=== PATIENT | female | born 1950 | race Caucasian/White ===

== ENCOUNTER 2019-11-27 12:54 | Inpatient (IN) ==
[2019-11-27] MEDS ORDERED: ASPIRIN PO ONE (13:06)
--- NOTE | 2019-11-27 13:26 | Diag Imaging Result Doc PS360 ---
EXAM: CHEST-2 VIEWS 11/27/2019 HISTORY: sob TECHNIQUE: PA and lateral chest COMMENT: There is no evidence of acute cardiac or pulmonary disease. Compared to 02/19/2016 there has been no significant change in the appearance the chest. IMPRESSION: No evidence of acute disease. Electronically signed by Endy Peña 11/27/2019 1:24 PM
[2019-11-27 13:28] LABS: BASO# 0.03 X1000 (0.0-0.2); BASO% 0.3 % (0.0-0.8); EOS% 1.7 % (0.0-10.0); HEMATOCRIT 44.5 % (37.0-47.0); HEMOGLOBIN 13.4 g/dL (12.0-16.0); IMM GRAN# 0.09 X1000 (0.0-0.04); IMM GRAN% 0.8 % (0.0-0.5); LYMPH# 1.97 X1000 (1.2-3.4); LYMPH% 16.4 % (20.5-51.1); MCH 21.5 PG (27-31); MCHC 30.1 g/dL (33-37); MCV 71.4 FL (81-99); MONO# 1.21 X1000 (0.11-0.59); MONO% 10.1 % (1.7-9.3); MPV 9.9 FL (7.4-10.4); NEUT% 70.7 % (42.2-75.2); PLT 454 X1000 (130-400); RBC 6.23 XMIL (4.2-5.4)
[2019-11-27 13:31] LABS: INR 0.95; PROTIME 12.8 Seconds (11.0-16.0)
[2019-11-27 13:32] LABS: PTT 26.9 Seconds (22.3-41.8)
--- NOTE | 2019-11-27 13:44 | EKG Report ---
Test Performed on : 11/27/2019 1:42:24 PM Test Reason : sob Blood Pressure : / mmHG Vent. Rate : 099 BPM Atrial Rate : 099 BPM P-R Int : 140 ms QRS Dur : 080 ms QT Int : 350 ms P-R-T Axes : 052 -21 073 degrees QTc Int : 449 ms Normal sinus rhythm. Cannot rule out Anterior infarct , age undetermined Abnormal ECG No previous ECGs available Unconfirmed Result
[2019-11-27 13:46] LABS: AGAP 16; ALB/GLOB RATIO 1.4; ALBUMIN 4.4 g/dL (3.5-5.0); ALKALINE PHOSPHATASE 132 U/L (32-104); BUN 16 mg/dL (8-22); CALCIUM 9.4 mg/dL (8.8-10.2); CHLORIDE 94 mmol/L (98-107); COSMO 272; CREATININE 0.7 mg/dL (0.5-0.9); ESTIMATED GFR > 60; GLUCOSE 113 mg/dL (70-104); GOT 25 U/L (10-30); GPT 28 U/L (10-36); POTASSIUM 3.8 mmol/L (3.5-5.1); SODIUM 135 mmol/L (136-145); TCO2 25 mmol/L (25-35); TOTAL PROTEIN 7.5 g/dL (6.3-8.3)
[2019-11-27 13:49] LABS: CK PROFILE 180 U/L (24-173)
[2019-11-27 14:07] LABS: CK INDEX 3.3 (0.0-2.5); CK-MB 5.89 ng/mL (0.0-5.0)
--- NOTE | 2019-11-27 14:17 | PROVIDER DOCUMENTATION ---
HPI-Chest Pain - General Chief Complaint: Shortness of Breath Stated Complaint: DR SENT FOR FLUID ON LUNGS Time Seen by Provider: 11/27/19 14:16 Source: patient Allergies/Adverse Reactions: Patient Allergies Allergy/AdvReac Type Severity Reaction Status Date / Time hydrocodone Allergy Unknown Verified 08/22/17 13:29 amoxicillin trihydrate * Allergy RASH Verified 02/19/16 09:01 [From Augmentin] potassium clavulanate * Allergy RASH Verified 02/19/16 09:01 [From Augmentin] ropinirole HCl * Allergy RASH Verified 02/19/16 08:47 [From Requip] Sulfa (Sulfonamide Allergy ANAPHYLAXIS Verified 02/19/16 08:47 Antibiotics) shellfish derived AdvReac HEADACHE Verified 02/19/16 09:01 tramadol AdvReac Unknown Verified 02/19/16 09:01 Home Medications: Home Medication List Medication Instructions Recorded Confirmed Last Taken Type RX: Atorvastatin Calcium [Lipitor] 40 mg PO DAILY 02/19/16 11/27/19 Unknown History RX: Duloxetine [Cymbalta] 60 mg PO DAILY 02/19/16 11/27/19 Unknown History RX: Gabapentin [Neurontin] 900 mg PO BID 02/19/16 11/27/19 Unknown History RX: Magnesium Citrate 100 mg PO BID 02/19/16 11/27/19 Unknown History RX: Metformin E.r. [Glucophage Xr] 2 tab PO BID 02/19/16 11/27/19 Unknown Histor y RX: Omeprazole 20 mg PO BID 02/19/16 11/27/19 Unknown History RX: Pramipexole [Mirapex] 1 mg PO DAILY 02/19/16 11/27/19 Unknown History RX: Spironolactone 100 mg PO QAM 02/19/16 11/27/19 Unknown History RX: LISINOpril [Prinivil] 1 tab PO QAM 03/09/18 11/27/19 Unknown History RX: Mirtazapine 1 tab PO HS 03/09/18 11/27/19 Unknown History Fluticasone/Vilant 200/25 INH 1 inhaler INH QAM 11/27/19 11/27/19 Unknown History [Breo Ellipta 200/25 Mcg INH] Glimepiride 4 mg PO QAM 11/27/19 11/27/19 Unknown History Insulin Degludec [Tresiba 120 units SQ QPM 11/27/19 11/27/19 Unknown History Flextouch U-200] RX: Albuterol 0.5% INH Conc 2 puff INH Q4HR PRN 11/27/19 11/27/19 Unknown History [Albuterol 0.5% INH Conc For Hyperkalemia] RX: Insulin Aspart [Novolog 50 units SQ TID 11/27/19 11/27/19 Unknown History Flexpen] Semaglutide [Ozempic] 180 ml PO QAM 11/27/19 11/27/19 Unknown History - History of Present Illness-CP Nature of Presenting Problem: Patient is a 69 yo F with PMH of DM2, HTN, Depression, COPD, who presents to the ED after she was sent form her PCP's office where she was seen for sob and t here was concern for fluid overload. Patient reports worsening SOB and chest pain (described as "pressure") on exertion over the past 2 weeks. The sob and cp are both partially relieved with rest. Patient additionally has swelling of the LE's and reports a wet cough for almost 2 months. She denies palpitations, syncope, dizziness, n/v/d. Location: reports: substernal Chest Pain Radiation: reports: back Quality of Pain: reports: pressure Severity in ED: moderate Onset/Duration: gradual Timing: still present Context/Activities at Onset: reports: light activity Modifying Factors: improves with: rest. worse with: exercise Associated Symptoms: reports: back pain, diaphoresis, edema, fatigue. denies: abdominal pain, dizziness, fever/chills, nausea, syncope, vomiting, weakness Aspirin Treatment Today: provided by ED Prior Chest Pain/Cardiac Workup: reports: no prior chest pain, no prior cardiac workup Similar Symptoms Previously?: No Review of Systems - Adult - REVIEW OF SYSTEMS - ADULT Constitutional: reports: no symptoms reported Eyes: reports: no symptoms reported Ears, Nose, Mouth & Throat: reports: no symptoms reported Cardiovascular: reports: see HPI Respiratory: reports: see HPI Gastrointestinal: reports: no symptoms reported Genitourinary: reports: no symptoms reported Musculoskeletal: reports: no symptoms reported Integumentary: reports: no symptoms reported Neurological: reports: no symptoms reported Psychiatric: reports: no symptoms reported Endocrine: reports: no symptoms reported Hematologic/Lymphatic: reports: no symptoms reported Allergic/Immunologic: reports: no symptoms reported All Other Systems: Reviewed and Negative Past History - Adult - PAST MEDICAL HISTORY-ADULT Review of Records: reports: Old Records Reviewed, Nursing Assessment Review, Medications Reviewed, Social history reviewed & non-contributory. Cardiovascular: reports: HTN Respiratory: reports: COPD Musculoskeletal: reports: chronic pain (chronic back pain) Endocrine/Immune: reports: Diabetes Diabetes Type: Type 2 Other Conditions: reports: denies history - PRIOR SURGERIES/PROCEDURES Surgical/Procedure History: reports: appendectomy, cholecystectomy, orthopedic (extremity) - IMMUNIZATION STATUS Childhood Immunizations: See Nurse Assessment Flu Vaccine: See Nurse Assessment - FAMILY HISTORY Family History: reviewed, not pertinent - SOCIAL HISTORY Smoking: denies, secondhand Substance Use: none/never Alcohol Use Frequency: never Living Situation: family Physical Exam-General - PHYSICAL EXAM-ADULT Initial Vital Signs Reviewed: Yes (Mild Tachycardia noted, 99 bpm on EKG) - CONSTITUTIONAL General Appearance: appears well, alert, no apparent distress - EYES Eyes: PERRL/EOMI - HEAD, EARS, NOSE, MOUTH & THROAT HENMT: normocephalic/atraumatic, moist mucous membranes - NECK Neck: non-tender, full range of motion - RESPIRATORY Respiratory: chest non-tender, lungs clear, normal breath sounds - CARDIOVASCULAR Cardiovascular: normal peripheral pulses, regular rate, rhythm, no JVD, no murmur, other (1+ bilateral LE edema below knee level) - GASTROINTESTINAL (ABDOMEN) Abdominal Exam: normal bowel sounds, non tender, soft, other (Obese) - MUSCULOSKELETAL Back Exam: normal inspection Extremity: non-tender - SKIN Integumentary: normal color - NEUROLOGIC Neurologic: recreational therapy technician II-XII nml as tested - PSYCHIATRIC Psych/Mental Status: oriented x 3 - HEART Score HEART Score: History: Highly Suspicious HEART Score: ECG: Non-Specific Repolarization Disturbance/LBBB/PM HEART Score: Age: > or = 65 Years HEART Score: Risk Factors for Atherosclerotic Disease: > or = 3 Risk Factors or History of Atherosclerotic Disease HEART Score: Troponin: 1-3x Normal Limit (High risk) Total HEART Score:: 8 Progress - PLAN OF CARE/RESULTS Progress/Plan/Lab Results: Vital Signs - 8 hr 11/27/19 17:09 11/27/19 17:10 11/27/19 17:15 Pulse Rate Respiratory Rate Blood Pressure 120/54 O2 Sat by Pulse Oximetry 100 99 99 11/27/19 17:30 11/27/19 17:45 11/27/19 18:00 Pulse Rate Respiratory Rate Blood Pressure O2 Sat by Pulse Oximetry 99 100 100 11/27/19 18:15 11/27/19 18:17 11/27/19 18:30 Pulse Rate 102 H 100 H Respiratory Rate 25 H 28 H Blood Pressure 134/82 O2 Sat by Pulse Oximetry 100 92 L 92 L 11/27/19 18:49 11/27/19 18:50 11/27/19 19:00 Pulse Rate 108 H 106 H 104 H Respiratory Rate 28 H 22 Blood Pressure 156/80 150/73 O2 Sat by Pulse Oximetry 97 95 93 L 11/27/19 19:34 11/27/19 19:45 11/27/19 20:00 Pulse Rate 102 H 101 H Respiratory Rate 22 28 H Blood Pressure 142/68 O2 Sat by Pulse Oximetry 94 L 95 95 Laboratory Results - last 24 hr 11/27/19 11/27/19 11/27/19 13:09 13:09 13:09 WBC 12.00 H RBC 6.23 H Hgb 13.4 Hct 44.5 MCV 71.4 L MCH 21.5 L MCHC 30.1 L RDW Std Deviation 18.0 H Plt Count 454 H MPV 9.9 Immature Gran % (Auto) 0.8 H Neut % (Auto) 70.7 Lymph % (Auto) 16.4 L [place] % (Auto) 10.1 H Eos % (Auto) 1.7 Baso % (Auto) 0.3 Immature Gran # (Auto) 0.09 H Neut # (Auto) 8.50 H Lymph # (Auto) 1.97 [place] # (Auto) 1.21 H Eos # (Auto) 0.20 Baso # (Auto) 0.03 PT INR PTT (Actin FS) D-Dimer, Quantitative Sodium 135 L Potassium 3.8 Chloride 94 L Carbon Dioxide 25 Anion Gap 16 BUN 16 Creatinine 0.7 Estimated GFR/1.73 m2 > 60 BUN/Creatinine Ratio 23 Glucose 113 H Calculated Osmolality 272 Calcium 9.4 Total Bilirubin 0.30 AST 25 ALT 28 Alkaline Phosphatase 132 H Creatine Kinase 180 H Creatine Kinase Index 3.3 H CK-MB (CK-2) 5.89 H Troponin T High Sens [id number]-[id number] Pept 23 Total Protein 7.5 Albumin 4.4 Globulin 3.1 Albumin/Globulin Ratio 1.4 11/27/19 11/27/19 11/27/19 13:09 13:09 13:09 WBC RBC Hgb Hct MCV MCH MCHC RDW Std Deviation Plt Count MPV Immature Gran % (Auto) Neut % (Auto) Lymph % (Auto) [place] % (Auto) Eos % (Auto) Baso % (Auto) Immature Gran # (Auto) Neut # (Auto) Lymph # (Auto) [place] # (Auto) Eos # (Auto) Baso # (Auto) PT 12.8 INR 0.95 PTT (Actin FS) 26.9 D-Dimer, Quantitative < 0.27 Sodium Potassium Chloride Carbon Dioxide Anion Gap BUN Creatinine Estimated GFR/1.73 m2 BUN/Creatinine Ratio Glucose Calculated Osmolality Calcium Total Bilirubin AST ALT Alkaline Phosphatase Creatine Kinase Creatine Kinase Index CK-MB (CK-2) Troponin T High Sens 23 H* Ezs-W-Sdvvdwdoque Pept Total Protein Albumin Globulin Albumin/Globulin Ratio 11/27/19 11/27/19 17:02 17:02 WBC RBC Hgb Hct MCV MCH MCHC RDW Std Deviation Plt Count MPV Immature Gran % (Auto) Neut % (Auto) Lymph % (Auto) [place] % (Auto) Eos % (Auto) Baso % (Auto) Immature Gran # (Auto) Neut # (Auto) Lymph # (Auto) [place] # (Auto) Eos # (Auto) Baso # (Auto) PT INR PTT (Actin FS) D-Dimer, Quantitative Sodium Potassium Chloride Carbon Dioxide Anion Gap BUN Creatinine Estimated GFR/1.73 m2 BUN/Creatinine Ratio Glucose Calculated Osmolality Calcium Total Bilirubin AST ALT Alkaline Phosphatase Creatine Kinase 219 H Creatine Kinase Index 2.6 H CK-MB (CK-2) 5.64 H Troponin T High Sens 19 H Nco-B-Kodvkweffvx Pept Total Protein Albumin Globulin Albumin/Globulin Ratio Orders Category Date Time Status Admit - [facility] Routine AdmDCTranf 11/27/19 19:04 Active Activity - Bed Rest with BRP ORDERED Care 11/27/19 19:13 Active Cardiac Monitoring DIRECTED Care 11/27/19 13:06 Active Nursing- MD Consult Request ROUTINE Care 11/27/19 19:37 Active Oxygen Therapy- ED Nursing DIRECTED Care 11/27/19 13:06 Active Resuscitation Status Routine Care 11/27/19 19:12 Ordered Saline Loc DIRECTED Care 11/27/19 19:13 Active Saline Loc NOW Care 11/27/19 13:06 Active Saline Loc NOW Care 11/27/19 18:07 Active Vital Signs Order ORDERED Care 11/27/19 19:13 Active Z-Document. for Tele Applied ORDERED Care 11/27/19 19:14 Active Physician/Provider Consults Routine Cons 11/27/19 19:37 Ordered Diabetic Diet Diet 11/27/19 19:15 Completed Diabetic Diet Diet 11/27/19 19:38 Completed NPO Diet 11/28/19 00:01 Active CHEST-2 VIEWS [RAD] Stat Exams 11/27/19 13:06 Completed Earnestine [MYOCARDIAL PERF SCAN, STR/REST] [NM] Routine Exams 11/28/19 06:00 Ordered BMP [BASIC METABOLIC PANEL] [CHEM] Routine Lab 11/28/19 06:00 Uncollected CBC WITH DIFF [HEME] Routine Lab 11/28/19 06:00 Ordered CBC WITH ELECTRONIC DIFF [HEME] Stat Lab 11/27/19 13:09 Completed CK PROFILE [SP CHEM] Stat Lab 11/27/19 13:09 Completed COMPREHENSIVE METABOLIC PANEL [CHEM] Stat Lab 11/27/19 13:09 Completed Cardiac Profile [CK PROFILE] [SP CHEM] Stat Lab 11/27/19 17:02 Completed D-DIMER [COAG] Stat Lab 11/27/19 13:09 Completed PRO B-NATRIURETIC PEPTIDE Stat Lab 11/27/19 13:09 Completed PROTIME WITH INR [COAG] Stat Lab 11/27/19 13:09 Completed PTT [COAG] Stat Lab 11/27/19 13:09 Completed TROPONIN T HIGH SENSITIVITY Stat Lab 11/27/19 13:09 Completed TROPONIN T HIGH SENSITIVITY Stat Lab 11/27/19 17:02 Completed 0.9% Sodium Chloride Inj [Ns] 1,000 ml Med 11/27/19 19:13 Active IV 60 mls/hr ATORVAstatin [Lipitor] Med 11/27/19 21:00 Active 40 mg PO QHS Alprazolam [Xanax] Med 11/27/19 19:37 Active 0.25 mg PO DAILY PRN PRN Aspirin Med 11/27/19 13:06 Discontinued 325 mg PO NOW ONE Budesonide [Pulmicort Flexhaler] Med 11/27/19 19:37 Pending 1 puff IH PRN PRN Clopidogrel [Plavix] Med 11/27/19 14:27 Discontinued 300 mg PO NOW ONE Dextrose 5%-0.9% NaCl Inj [D5 Ns] 1,000 ml Med 11/27/19 18:08 Active IV 75 mls/hr Duloxetine [Cymbalta] Med 11/28/19 09:00 Active 60 mg PO DAILY Enoxaparin 1 mg/kg [Lovenox 1 mg/kg] Med 11/27/19 14:34 Discontinued 1 each SUBQ NOW ONE Enoxaparin [Lovenox] Med 11/27/19 16:00 Discontinued 110 mg SUBQ NOW ONE Furosemide [Lasix] Med 11/27/19 14:59 Discontinued 40 mg IV NOW ONE Gabapentin [Neurontin] Med 11/27/19 21:00 Active 900 mg PO BID Heparin 25,000 Units/D5w Med 11/27/19 14:30 Discontinued 25,000 unit in 250 ml IV 12 unit/kg/hr Insulin Degludec [Tresiba Flextouch U-200] Med 11/27/19 21:00 Discontinued 30 unit SUBQ HS Insulin Lispro [Humalog] Med 11/27/19 21:00 Active See Dose Instructions SUBQ 0700,1100,1600,2100 LISINOpril [Prinivil] Med 11/28/19 09:00 Active 5 mg PO QAM Metformin E.r. [Glucophage Xr] Med 11/27/19 21:00 Active 1,000 mg PO BID Mirtazapine [Remeron] Med 11/27/19 21:00 Active 15 mg PO HS Morphine Med 11/27/19 19:13 Active 2 mg IV Q2H PRN PRN Omeprazole [Prilosec] Med 11/27/19 21:00 Active 20 mg PO BID Ondansetron [Zofran] Med 11/27/19 19:13 Active 4 mg IV Q4H PRN PRN Patient's Own Med Med 11/27/19 21:00 Active 1 each PO BID Pramipexole [Mirapex] Med 11/27/19 21:00 Active 1 mg PO QHS Spironolactone [Aldactone] Med 11/28/19 09:00 Active 100 mg PO QAM CP/SOB/Palp >45 yrs of Age Stat Oth 11/27/19 13:06 Ordered Oxygen Device Routine Oth 11/27/19 19:13 Active Telemetry [OM.EQ] Routine Oth 11/27/19 19:13 Active EKG [EKG] Routine Ther 11/27/19 16:00 Draft EKG [EKG] Routine Ther 11/28/19 06:00 Ordered EKG [EKG] Stat Ther 11/27/19 13:06 Draft Echo Spec/Color Doppler Routine Ther 11/27/19 19:37 Ordered Transfer/Admit Order [TRANSFER] Routine Transfer 11/27/19 18:36 Completed Discussed case with Director Of Emergency Nursing, as patient was hypoxic in PCP's office this AM, advised to obtain D-Dimer and trend EKG/cardiac enzymes in the ED q3h. D-dimer neg, repeat EKG unchanged, Troponin trending down. Discussed with PCP, will proceed with admission for NSTEMI and further cardiac work-up. Result Diagrams: 11/27/19 13:09 11/27/19 13:09 - REASSESSMENT Reassessment #1 Status: unchanged Reassessment #2 Status: unchanged - EKG 1 Time of EKG reading by physician:: 13:42 EKG Read and Signed by:: Isabel Aguirre EKG Interpretation (*Must complete 3 of following elements*): Abnormal Rate: 99 Rhythm: sinus [place]: normal QRS: normal MD Interval: normal ST Wave: non-specific ST changes Prior EKG Comparison: no prior EKG 2 Time of EKG reading by physician:: 17:25 EKG Read and Signed by:: Isabel Aguirre EKG Interpretation (*Must complete 3 of following elements*): Abnormal Rate: 94 Rhythm: NSR QRS: normal MD Interval: normal Prior EKG Comparison: unchanged from prior - XRAY 1 XRAY Study: Chest Impression: See EMR Report (EXAM: CHEST-2 VIEWS 11/27/2019 HISTORY: sob TECHNIQUE: PA and lateral chest COMMENT: There is no evidence of acute cardiac or pulmonary disease. Compared to 02/19/2016 there has been no significant change in the appearance the chest. IMPRESSION: No evidence of acute disease. Electronically signed by Endy Peña 11/27/2019 1:24 PM) - CONSULTS/PCP/HOSPITALIST Notification #1 *Consult/PCP/Hospitalist*: Dr. Rojo Time Discussed: 15:15 Reason/Comments: NSTEMI Consult Disposition: other (Requested cardiology consult) Time Discussed: 15:26 (Cardiology (Dr. Anderson)) Reason/Comments: Advised to obtain D-Dimer and trend troponin/EKG in the ED #3 Consult: Dr. Rojo Time Discussed: 18:40 Reason/Comments: Admit to inpatient Consult Disposition: Will see in ED Departure - Departure Date of Disposition Decision: 11/27/19 Time of Disposition Decision: 18:43 DIAGNOSIS: NSTEMI (non-ST elevated myocardial infarction) Disposition: ADMITTED INPATIENT 09 Certified Medical Emergency: Emergent Condition: Fair - Critical Care Note This patient required my direct & personal management of CC.: Yes Total Time (mins): 60 Critical Care Statement: This patient required my direct personal management to treat or rule out processes, the absence of which, could potentiallly result in sudden, clinically significant life or limb threatening deterioration. Attestation - Physician/ TED Attestation Patient care was provided by Advanced Practice Provider:: No The physician spent face to face time with patient:: Yes Advanced Practice Provider documentation review:: Supervising physician onsite and consulted in the evaluation and care of this patient. The physician did have a face to face encounter with the patient.
[2019-11-27] MEDS ORDERED: PLAVIX PO ONE (14:27)
[2019-11-27] MEDS ORDERED: HEPARIN 25,000 UNITS/D5W 25,000 UNIT/250 ML IV.SOLN IV SCH (14:30)
[2019-11-27] MEDS ORDERED: LOVENOX 1 MG/KG SUBQ ONE (14:34)
[2019-11-27] MEDS ORDERED: LASIX IV ONE (14:59)
[2019-11-27] MEDS ORDERED: LOVENOX SUBQ ONE (16:00)
--- NOTE | 2019-11-27 17:53 | EKG Report ---
Test Performed on : 11/27/2019 5:23:59 PM Test Reason : Chest pain Blood Pressure : / mmHG Vent. Rate : 094 BPM Atrial Rate : 094 BPM P-R Int : 144 ms QRS Dur : 078 ms QT Int : 348 ms P-R-T Axes : 043 -18 065 degrees QTc Int : 435 ms Normal sinus rhythm. Cannot rule out Anterior infarct (cited on or before 27-NOV-2019) Abnormal ECG When compared with ECG of 27-NOV-2019 13:42, (Unconfirmed) No significant change was found Unconfirmed Result
[2019-11-27] MEDS ORDERED: D5 NS 1,000 ML IV ONE (18:08)
[2019-11-27 18:26] LABS: CK INDEX 2.6 (0.0-2.5); CK-MB 5.64 ng/mL (0.0-5.0)
[2019-11-27] MEDS ORDERED: NS 1,000 ML IV ONE (19:13)
[2019-11-27] MEDS ORDERED: ZOFRAN IV PRN (19:13)
[2019-11-27] MEDS ORDERED: MORPHINE IV PRN (19:13)
[2019-11-27] MEDS ORDERED: BUDESONIDE IH PRN (19:37)
[2019-11-27] MEDS ORDERED: XANAX PO PRN (19:37)
[2019-11-27] MEDS: GLUCOPHAGE XR PO SCH (20:57)
[2019-11-27] MEDS: LIPITOR PO SCH (20:58)
[2019-11-27] MEDS: MIRAPEX PO SCH (20:59)
[2019-11-27] MEDS: TRESIBA FLEXTOUCH U-200 SUBQ SCH (21:00)
[2019-11-27] MEDS: PATIENT'S OWN MED PO SCH (21:00)
[2019-11-27] MEDS ORDERED: TRESIBA FLEXTOUCH U-200 SUBQ SCH (21:00)
[2019-11-27] MEDS: REMERON PO SCH (21:00)
[2019-11-27] MEDS: HUMALOG SUBQ SCH (21:00)
[2019-11-27] MEDS: PRILOSEC PO SCH (21:13)
[2019-11-27] MEDS: NEURONTIN PO SCH (21:13)
[2019-11-27] MEDS ORDERED: INSULIN PEN NEEDLES ONE ×2 (21:16→21:22)
--- NOTE | 2019-11-28 05:18 | HISTORY AND PHYSICAL ---
CHIEF COMPLAINT: Shortness of breath. HISTORY OF PRESENT ILLNESS: This is a 69-year-old female who presented to the office this morning with complaint of having shortness of breath along with difficulty breathing. She is a poor historian, and has multiple medical history including type 2 diabetes mellitus that has been poorly controlled along with hypertension, dyslipidemia, and osteoarthritis. Upon arrival to the emergency room, she presented with retrosternal chest pain as well along with shortness of breath. She stated that she has swelling all over her body, and has not been feeling well. She has also been having extreme fatigue. PAST MEDICAL HISTORY: 1. Type 2 diabetes mellitus. 2. Hypertension. 3. Dyslipidemia. 4. Gastroesophageal reflux disease. 5. Allergic rhinitis. 6. Anxiety disorder. 7. Depression. 8. Osteoarthritis. 9. Asthma. 10. Chronic back pain secondary to degenerative disk disease of lumbar and thoracic spine. 11. Obstructive sleep apnea. 12. Morbid obesity. PAST SURGICAL HISTORY: 1. Appendectomy. 2. Cholecystectomy. 3. Left sided total knee arthroplasty. SOCIAL HISTORY: The patient does not smoke any tobacco products nor does she drink any alcohol. She does not use any recreational drugs either. FAMILY HISTORY: Noncontributory. ALLERGIES: Patient reports to be allergic to Augmentin, sulfa drugs, Requip, Vicodin, and tramadol. MEDICATIONS: Current home medications: 1. Atorvastatin 40 mg orally once daily at bedtime. 2. Breo Ellipta 200/25 1 inhalation once daily. 3. Clonazepam 0.5 mg every 12 hours. 4. Duloxetine 60 mg orally once daily. 5. Gabapentin 300 mg orally twice daily. 6. Glimepiride 4 mg orally once daily in the morning. 7. Lisinopril 5 mg orally once daily. 8. Magnesium citrate 100 mg orally twice daily. 9. Metformin 1000 mg orally twice daily. 10. Metoprolol ER 50 mg orally once daily. 11. Mirtazapine 30 mg orally once daily at bedtime. 12. Ozempic 1 mg subcutaneously once a week. 13. Omeprazole 40 mg orally once daily in the morning as directed. 14. Pramipexole 1 mg orally once daily at bedtime. 15. Spironolactone 100 mg orally once daily in the morning. 16. Tresiba 120 units subcutaneously every 24 hours as directed. 17. NovoLog 45 to 55 units subcutaneously 3 times a day with meals as directed. 18. ProAir HFA 2 puffs q.4 hours as needed for shortness of breath. REVIEW OF SYSTEMS: A 14 point review of systems was obtained, it was pretty much the same as already has been explained in the HPI. PHYSICAL EXAMINATION: VITAL SIGNS: Temperature 97.7 degrees, pulse rate 100 per minute, respiratory rate 20 per minute, blood pressure 150/63, pulse oximetry 96% on room air. GENERAL: Patient is alert and oriented x3. She does not appear to be in any acute distress. HEENT: Within normal limits. NECK: Supple, without any thyromegaly. LYMPHATICS: No lymphadenopathy noted in the neck region. CHEST: Wall is nontender. CARDIOVASCULAR: First and second heart sounds are audible without any murmurs or gallops. There is regular tachycardia present. RESPIRATORY: No respiratory distress noted. Bilateral lung air entry is moderately decreased but there are no rales or rhonchi present on auscultation. GASTROINTESTINAL: Patient is morbidly obese. Abdomen is soft and nontender on palpation. Normal bowel sounds are present. MUSCULOSKELETAL: No deformities are present. Bilateral minimal edema is present. NEUROLOGIC: No focal deficits are present. GENITOURINARY: Deferred. INTEGUMENTARY: Skin is warm, dry, and without any rash. DIAGNOSTIC DATA: CBC showed WBC count of 12.0 with 70.7% neutrophils. Rest of the CBC is nondiagnostic. Comprehensive metabolic panel showed a minimally elevated alkaline phosphatase of 132 and slight hyponatremia with sodium levels of 135. Rest of the comprehensive metabolic panel is nondiagnostic. CPK was found to be 180 with CK-MB of 5.89, and high sensitivity troponin T levels of 23. Repeat high sensitivity troponin T levels were found to be 19 four hours apart. ProBNP was negative at 23. PT and PTT along with D-dimer levels were found to be negative. Chest x-ray obtained at the emergency room did not show any active disease. EKG done at the emergency room at 13:42 hours today showed normal sinus rhythm with a ventricular rate of 99 beats per minute, and no acute ischemic abnormalities except some poor R-wave progression. Repeat ECG done at 17:43 showed normal sinus rhythm with a ventricular rate of 94 beats per minute, and no changes when compared to the previous ECG. IMPRESSION: Dyspnea and chest pain in this 69-year-old lady who has multiple risk factors including type 2 diabetes mellitus that has been poorly controlled along with hypertension and dyslipidemia. In addition, she has morbid obesity and sedentary lifestyle. PLAN: We will admit the patient to [facility] and obtain echocardiogram along with scheduling her for a Lexiscan myocardial perfusion study. We are going to continue her routine home medications, and obtain Cardiology consultation to further assist us in ruling out any underlying coronary artery disease. Further recommendations will be given as per hospital course. cc: Navneet Rojo MD MTDD
[2019-11-28 05:34] LABS: BASO# 0.02 X1000 (0.0-0.2); BASO% 0.2 % (0.0-0.8); EOS# 0.28 X1000 (0.0-0.7); EOS% 2.7 % (0.0-10.0); HEMOGLOBIN 13.2 g/dL (12.0-16.0); IMM GRAN# 0.04 X1000 (0.0-0.04); IMM GRAN% 0.4 % (0.0-0.5); LYMPH# 1.82 X1000 (1.2-3.4); LYMPH% 17.6 % (20.5-51.1); MCHC 30.7 g/dL (33-37); MCV 71.5 FL (81-99); MONO% 10.6 % (1.7-9.3); MPV 10.1 FL (7.4-10.4); NEUT# 7.11 X1000 (1.4-6.5); NEUT% 68.5 % (42.2-75.2); PLT 430 X1000 (130-400); RBC 6.01 XMIL (4.2-5.4); RDW 17.2 % (11.5-14.5); WBC 10.37 X1000 (4.8-10.8)
--- NOTE | 2019-11-28 07:44 | EKG Report ---
Test Performed on : 11/28/2019 07:07:43 AM Test Reason : Chest Pain Blood Pressure : / mmHG Vent. Rate : 113 BPM Atrial Rate : 113 BPM P-R Int : 134 ms QRS Dur : 076 ms QT Int : 340 ms P-R-T Axes : 053 001 061 degrees QTc Int : 466 ms Suspect unspecified pacemaker failure Sinus tachycardia. Cannot rule out Anterior infarct (cited on or before 27-NOV-2019) Abnormal ECG When compared with ECG of 27-NOV-2019 17:23, (Unconfirmed) No significant change was found Confirmed by Maxim ELLISON, Bogdan Jain ([id number]) on 11/28/2019 10:21:00 AM
[2019-11-28 07:50] LABS: AGAP 15; BUN 14 mg/dL (8-22); CALCIUM 9.1 mg/dL (8.8-10.2); CHLORIDE 92 mmol/L (98-107); COSMO 277; CREATININE 0.7 mg/dL (0.5-0.9); ESTIMATED GFR > 60; GLUCOSE 253 mg/dL (70-104); POTASSIUM 4.6 mmol/L (3.5-5.1); SODIUM 134 mmol/L (136-145); TCO2 27 mmol/L (25-35)
[2019-11-28] MEDS: HUMALOG SUBQ SCH ×4 (08:16→20:54)
[2019-11-28] MEDS ORDERED: LEXISCAN ONE (09:00)
[2019-11-28] MEDS: CYMBALTA PO SCH (11:22)
[2019-11-28] MEDS: NEURONTIN PO SCH ×2 (11:22→20:54)
[2019-11-28] MEDS: PRILOSEC PO SCH ×2 (11:22→20:54)
[2019-11-28] MEDS: ALDACTONE PO SCH (11:22)
[2019-11-28] MEDS: PRINIVIL PO SCH (11:22)
[2019-11-28] MEDS: PATIENT'S OWN MED PO SCH (11:34)
[2019-11-28] MEDS ORDERED: ALBUTEROL 0.5% INH CONC FOR HYPERKALEMIA INH PRN (11:53)
[2019-11-28] MEDS: GLUCOPHAGE XR PO SCH ×2 (11:59→20:54)
--- NOTE | 2019-11-28 12:13 | CONSULTATION ---
DATE OF CONSULTATION: 11/28/2019 IMPRESSION: 1. Chest discomfort in association with cough and some shortness of breath. Chest discomfort characterized as pleuritic and occurring with her cough. Overall, clinical presentation atypical for myocardial ischemia, and more compatible with asthmatic bronchitis. Lexiscan sestamibi study performed today. 2. Mild nonspecific elevation in troponin. Electrocardiogram benign. Lexiscan sestamibi study already performed, and preliminary result is that this is normal. Doubt acute myocardial ischemia. 3. Asthmatic bronchitis. 4. Obesity. 5. Type 2 diabetes mellitus. 6. Hyperlipidemia. RECOMMENDATIONS: 1. Follow up echocardiography. 2. Treat for asthmatic bronchitis as you are doing. HISTORY: This 69-year-old, white female with past history of obesity, hypertension, asthmatic bronchitis, hyperlipidemia, and type 2 diabetes mellitus, presented to the emergency room with complaint of cough and shortness of breath. She has actually been having problems with cough and tendency for shortness of breath and some discomfort associated with coughing for the past 6 weeks or so. Symptoms recently got worse, and she was advised to come to the emergency room. She describes her chest discomfort as a discomfort that seems to be provoked with the action of coughing vigorously. Her cough has been minimally productive, although she senses that she may have some chest congestion. There has been no orthopnea. She had some subjective fever briefly, as well as some muscle aches previously, but these have resolved. PAST MEDICAL HISTORY: 1. Obesity. 2. Type 2 diabetes mellitus. 3. Hypertension. 4. Asthmatic bronchitis. 5. Hyperlipidemia. 6. Gastroesophageal reflux disease. 7. Anxiety/depression. 8. Chronic back disorder. PAST SURGICAL HISTORY: Includes appendectomy, cholecystectomy, and left total knee replacement. ALLERGIES: She has multiple drug allergies as listed. MEDICATIONS PRIOR TO ADMISSION: As listed. SOCIAL HISTORY: She is . She is a nonsmoker. She recently acquired a cat, but relates that her intensive coughing predated this. FAMILY HISTORY: Negative for premature coronary disease. REVIEW OF SYSTEMS: Pulmonary: Noncontributory beyond history of present illness. Gastrointestinal: Noncontributory beyond history of present illness. Constitutional: Noncontributory beyond history of present illness. The remainder of the review of systems is negative/noncontributory beyond history of present illness, with 14 total systems reviewed. PHYSICAL EXAMINATION: General: This is an obese, older, white female in no distress, on supplemental oxygen per nasal cannula. Vital Signs: Blood pressure 120/64, heart rate 110, with ECG monitor showing sinus tachycardia. HEENT: Extraocular movements appear intact. Mucous membranes are moist. Neck: Supple without jugular venous distention. There are no carotid bruits. Chest: Clear to auscultation with somewhat diminished breath sounds diffusely. Cardiac: Regular rate and rhythm without appreciable murmur or gallop. Abdomen: Soft. Bowel sounds are normal. Extremities: Without edema. Neurologic: She is alert and fully oriented. Speech is fluent. She moves all 4 extremities equally well. Skin: Warm and dry. Psychiatric: Her mood is appropriate. DIAGNOSTIC DATA: A 12-lead EKG demonstrates sinus tachycardia and delayed precordial R-wave progression. LABORATORY DATA: Includes a sodium of 134, potassium 4.6, chloride 92, carbon dioxide 27, BUN 14, creatinine 0.7, glucose 253. White blood cell count 10.37, hematocrit 43.0, hemoglobin 13.2, platelet count 430,000. Troponin T 23, with followup troponin T 19. Pro B-natriuretic peptide level 23. D-dimer less than 0.27. CPK 219. CPK-MB 5.64. CPK-MB index 2.6. cc: MD Navneet Moran MD
--- NOTE | 2019-11-28 13:22 | PROGRESS NOTE ---
DATE: 11/28/2019 SUBJECTIVE: The patient complains of having some mild exertional dyspnea, but denies having any chest pain this morning and feels well otherwise. OBJECTIVE: Vital Signs: Temperature 98.4 degrees, pulse 112 beats per minute, respiratory rate 17 per minute, blood pressure 118/ 72, pulse oximetry 95% on 2 L of oxygen via nasal cannula. General: Patient is alert and oriented x3. She does not appear to be in any acute distress. Cardiovascular System: First and second heart sounds are audible without any murmurs or gallops. Respiratory System: Bilateral lung air entry is moderately decreased but there are no rales or rhonchi present on auscultation. Gastrointestinal: Patient is morbidly obese. Abdomen is soft and nontender on palpation. Normal bowel sounds are present. DIAGNOSTIC DATA: CBC is nondiagnostic and basic metabolic panel showed glucose levels of 253. Rest of the BMP is nondiagnostic. IMPRESSION: Dyspnea and chest pain in this 69-year-old lady who has multiple risk factors including type 2 diabetes mellitus, hypertension, and dyslipidemia. She is morbidly obese and has a sedentary lifestyle. Furthermore, she also has asthmatic bronchitis that could also be responsible for her symptoms. PLAN: The patient has been admitted to the medical floor and we are going to have echocardiogram along with a stress test done to rule out any underlying coronary artery disease. Cardiology has also been consulted to further assist us in evaluating this patient. We are going to continue with the albuterol and ipratropium bromide inhalations and continue with Tresiba along with lispro insulin to control her glucose levels since that has been uncontrolled. The patient probably can be discharged home within the next 1 to 2 days if cleared by Cardiology. Further recommendations will be given after cardiology evaluation. cc: Navneet Rojo MD
--- NOTE | 2019-11-28 13:40 | Diag Imaging Result Document ---
PROCEDURE NAME: MYOCARDIAL PERF SCAN, STR/REST - 11/28/2019 STUDY PERFORMED: Lexiscan Cardiolite stress test. DESCRIPTION OF STUDY/FINDINGS: Lexiscan was infused per standard protocol. There was no chest pain. Stress electrocardiogram was negative for ischemia. Following Lexiscan infusion, Cardiolite was injected, and 15.7 mCi of Cardiolite was injected for the rest phase, 46.3 mCi of Cardiolite was injected for the stress phase. Gated SPECT images were obtained in standard views. Images revealed chest wall and diaphragmatic attenuation. There is normal left ventricular cavity size. Normal myocardial perfusion. Left ventricular ejection fraction by gated SPECT was 85%. CONCLUSIONS: 1. No chest pain. 2. Negative Lexiscan stress electrocardiogram. 3. Normal myocardial perfusion. 4. Left ventricular ejection fraction by gated SPECT was 85%. cc: MD Navneet Morales MD
--- NOTE | 2019-11-28 14:36 | ECHO REPORT ---
ORDER DATE: 11/27/2019 INTERPRETING PHYSICIAN: Dr. Hany Grigsby. ECHOCARDIOGRAPHIC MEASUREMENTS: 1. Interventricular septum: 1.4 cm. 2. Left ventricular diastolic diameter: 4.3 cm. 3. Left ventricular posterior wall: 1.4 cm. 4. Aorta: 3.4 cm. 5. Left atrium: 3.6 cm. SUMMARY OF THE 2-DIMENSIONAL IMAGIN. Mitral valve was normal. 2. Aortic valve leaflets are trileaflet. 3. Pulmonic valve was normal. 4. Technically suboptimal study, poor acoustic window. Optison was used to assess left ventricular systolic function. 5. There is mild mitral regurgitation. 6. There is diastolic dysfunction, mild tricuspid regurgitation. Peak velocity across the tricuspid valve was 2.5 m/sec, pulmonary artery systolic pressure of 35 mmHg, peak velocity across the aortic valve less than 2 m/sec. By Doppler studies, there is no aortic stenosis or regurgitation. 7. Normal left ventricular cavity size, concentric left ventricular hypertrophy, estimated ejection fraction of 65% to 70%. 8. There is no pericardial effusion. cc: MD Navneet Morales MD
[2019-11-28] MEDS: DUONEB (A & A) INH SCH ×3 (16:15→23:30)
[2019-11-28 19:07] LABS: URINE SOURCE CLEAN CATCH
[2019-11-28 19:15] LABS: BILIRUBIN URINE NEGATIVE (NEGATIVE); BLOOD URINE NEGATIVE (NEGATIVE); COLOR YELLOW; GLUCOSE URINE NEGATIVE (NEGATIVE); KETONE URINE TRACE mg/dL (NEGATIVE); LEUKOCYTES URINE NEGATIVE (NEGATIVE); NITRITE URINE NEGATIVE (NEGATIVE); PROTEIN URINE 70 mg/dL (NEGATIVE); SP GRAVITY URINE 1.034; TURBIDITY URINE CLEAR (CLEAR); UR EPITHELIAL CELLS <10 /HPF (<10); URINE BACTERIA NEGATIVE /HPF; URINE RBC <10 /HPF (<10); URINE WBC <10 /HPF (<10); UROBILINOGEN URINE 3 mg/dL (NORMAL)
[2019-11-28] MEDS: REMERON PO SCH (20:54)
[2019-11-28] MEDS: LIPITOR PO SCH (20:54)
[2019-11-28] MEDS: MIRAPEX PO SCH (20:54)
[2019-11-28] MEDS: TRESIBA FLEXTOUCH U-200 SUBQ SCH (21:13)
[2019-11-29] MEDS: PATIENT'S OWN MED PO SCH ×2 (00:29→08:07)
[2019-11-29] MEDS: DUONEB (A & A) INH SCH ×2 (03:21→08:37)
[2019-11-29] MEDS: BREO ELLIPTA 200/25 MCG INH INH SCH ×2 (06:04→08:36)
[2019-11-29] MEDS: HUMALOG SUBQ SCH (06:14)
[2019-11-29 07:56] VITALS: BP 144/62
[2019-11-29] MEDS: PRILOSEC PO SCH (08:07)
[2019-11-29] MEDS: GLUCOPHAGE XR PO SCH (08:07)
[2019-11-29] MEDS: ALDACTONE PO SCH (08:07)
[2019-11-29] MEDS: CYMBALTA PO SCH (08:07)
[2019-11-29] MEDS: PRINIVIL PO SCH (08:07)
[2019-11-29] MEDS: NEURONTIN PO SCH (09:02)
--- NOTE | 2019-11-30 10:05 | DISCHARGE SUMMARY ---
ADMISSION DATE: 11/27/2019 DISCHARGE DATE: 11/29/2019 DISCHARGE DIAGNOSES: 1. Dyspnea with atypical chest pain with cardiac etiology ruled out. 2. Asthmatic bronchitis. 3. Type 2 diabetes mellitus that has been poorly controlled. 4. Hypertension. 5. Dyslipidemia. 6. Morbid obesity. HOSPITAL COURSE: This is a 69-year-old female who was admitted to the hospital after she presented with shortness of breath and chest pain. She was evaluated by Cardiology during this hospital admission as well. Serial cardiac enzymes along with echocardiogram and Lexiscan myocardial perfusion study to rule out any underlying myocardial ischemia. The patient has felt well and has not been having significant issues because of which we are going to discharge her home today. DISCHARGE MEDICATIONS: 1. Albuterol inhaler 2 puffs q.4 hours as needed for wheezing. 2. Atorvastatin 40 mg orally once daily. 3. Azithromycin 500 mg orally once a day for 3 days. 4. Benzonatate 200 mg orally 3 times a day as needed for cough. 5. Duloxetine 60 mg orally once daily. 6. Breo Ellipta inhaler 200/25 1 once daily next. 7. Gabapentin 900 mg orally twice daily. 8. Glimepiride 4 mg orally once daily in the morning. 9. Tresiba 120 units subcutaneously once every 24 hours. 10. Lispro insulin 50 units subcutaneously 3 times a day with meals as directed. 11. Lisinopril 5 mg orally once daily. 12. Magnesium citrate 100 mg orally twice daily next. 13. Metformin ER 500 mg 2 tablets orally twice daily. 14. Mirtazapine 15 mg orally once daily at bedtime. 15. Omeprazole 20 mg orally twice daily. 16. Mirapex 1 mg orally once daily at bedtime. 17. Ozempic 1 mg subcutaneously once a week as directed. 18. Spironolactone 100 mg orally once daily in the morning. FOLLOWUP: She will follow with me at the office in approximately 1 week and follow up with Dr. [facility] 2 to 4 weeks. CONDITION: Stable. DISPOSITION: Home. cc: Navneet Rojo MD
== END 2019-11-29 11:30 | disposition home or self-care (01) | DRG 202 ==
LOC: ED 12:54 → EDIPHOLD 20:00 → 3N 11-28 13:52
PROVIDERS: ADMIT Internal Medicine; ATTEND Internal Medicine